=== PATIENT | male | born 1965 | race Two or more races ===

== ENCOUNTER 2017-01-30 02:45 | Emergency (ER) | payer SELFPAY ==
[~2017-01-30] VITALS: Ht 193 cm; Wt 75.6 kg
[2017-01-30 02:47] VITALS: BP 140/89
== END 2017-01-30 05:13 | disposition home or self-care (01) ==
LOC: ED 05:07
DX: J44.1 Chronic obstructive pulmonary disease with (acute) exacerbation (principal)
CPT/HCPCS: 71020; 93005; 99284; J7512